=== PATIENT | female | born 1960 ===

== ENCOUNTER 2016-08-31 12:27 | Emergency (ER) | payer OTHER ==
[~2016-08-31 12:27] MED LIST: ATROPINE 0.5 MG/5 ML DISP.SYRIN. ONE; EPINEPHRINE 1 MG/10 ML DISP.SYRIN. ONE
[2016-08-31] MEDS ORDERED: DOPAMINE 400MG/250ML PREMIX 0 ML IV ONE (12:58)
[2016-08-31] MEDS ORDERED: PHENYLEPHRINE 10 MG/ML VIAL. ONE (12:59)
[2016-08-31] MEDS ORDERED: PHENYLEPHRINE in 0.9% NACL PF 1 MG/10 ML DISP.SYRIN. IV ONE (13:00)
[2016-08-31 13:01] VITALS: BP 60/39
[2016-08-31] MEDS ORDERED: LIDOCAINE 2% 20 ML VIAL. ONE (13:04)
[2016-08-31] MEDS ORDERED: IODIXANOL 320 MG/ML 100 ML VIAL. ONE (13:04)
[2016-08-31] MEDS ORDERED: IV NORMAL SALINE 1000ML BAG 1,000 ML IV ONE (13:15)
[2016-08-31] MEDS ORDERED: IV NORMAL SALINE 1000ML BAG 1,000 ML IV SCH (13:20)
[2016-08-31 13:23] LABS: POTASSIUM ISTAT 3.3 mmol/L (3.5-5.0)
[2016-08-31] MEDS ORDERED: DEXTROSE 50% 25 GM / 50ML DISP.SYRIN. IV PRN (13:30)
[2016-08-31] MEDS ORDERED: FENTANYL STANDARD PCA 30 ML IV PRN (13:30)
[2016-08-31] MEDS ORDERED: LORAZEPAM 2 MG/ML VIAL IV PRN (13:30)
[2016-08-31] MEDS ORDERED: ATROPINE 0.5 MG/5 ML DISP.SYRIN. ONE (13:30)
[2016-08-31] MEDS ORDERED: FENTANYL PF 100 MCG/2 ML VIAL. IV PRN (13:30)
[2016-08-31] MEDS ORDERED: MEPERIDINE PF 25 MG/ML VIAL. IV PRN (13:30)
[2016-08-31] MEDS ORDERED: MINERAL OIL/PETROLATUM,WHITE OPHTH OINT 3.5GM TUBE. OU PRN (13:30)
[2016-08-31] MEDS ORDERED: PROPOFOL 100 ML IV PRN (13:30)
[2016-08-31] MEDS ORDERED: VECURONIUM BOLUS 10 MG VIAL. IV PRN (13:30)
[2016-08-31] MEDS ORDERED: 0.9 % SODIUM CHLORIDE 10 ML DISP.SYRIN. IV PRN (13:30)
--- NOTE | 2016-08-31 14:28 | CARD ---
APPROVED REPORT Procedure(s) performed: Limited coronary angiography HISTORY The patient is a 55 year-old female with a history of : Patient is a 55 y.o woman who presented to [facility] ER after reported syncopal event. Prior to EMS arrival, she was down for 15 to 20 min and upon thei r arrival was in PEA. She received 15min of CPR before return of pulse. Upon arrival to the ER, she w as not moving her extremities, pupils were fixed and dilated. EKG reviewed and showed massive infero- posterior STEMI. The patient was then emergently transferred to the porcelain enamel laborer after discussion with [facility] family that this may be a salvage case given her down time and lack of spontaneous movements/respir ations. Upon arrival to the porcelain enamel laborer, she was hypotensive on multiple pressors. Access was obtained i n the right artery and vein and a JL4 catheter was advanced to the LM and one image was performed at which point the patient continued to deteriorate and her BP dropped below 30 systolic. At this time, CPR was reinitiated. Despite aggressive CPR for 20 min, there was no ROSC. Time of 1:40 pm. , O f note, patient had a delayed presentation, upon talking to the patient's family, it appears that she had sports physiotherapist nausea, vomiting and diaphoresis but did not go to doctor. She apparently took sherry e OTC meds and tried to lie down but this did not help and eventually had a witnessed syncopal event. , . INDICATION The indication(s) include : STEMI . CASE TECHNIQUE The patient was brought emergently into the cardiac catheterization lab. A timeout was performed conf irming the patient's name, date of , procedure, and site of procedure. All necessary parties wer e wearing the appropriate personal protective equipment and radiation monitoring devices. After expla ining the risks and benefits of the procedure, informed consent was obtained. The right femoral groin was infiltrated with 2% Lidocaine subcutaneous anesthesia. During this case, Fluoroscopy and low osm olar contrast were used for imaging. Conclusion 1. Suspect likely secondary cardiovascular collapse in the setting of a delayed presentation of inferior-posterior STEMI. Recommendations Discussed with family ( and mother)
[2016-08-31] MEDS ORDERED: CALCIUM CHLORIDE 1,000 MG/10 ML DISP.SYRIN IV ONE (15:00)
[2016-08-31] MEDS ORDERED: EPINEPHRINE 30 MG/30 ML VIAL. ONE (15:00)
[2016-08-31] MEDS ORDERED: SODIUM BICARB ADULT 8.4% 50 MEQ/50 ML DISP.SYRIN. ONE (15:00)
[2016-08-31] MEDS ORDERED: EPINEPHRINE 1 MG/10 ML DISP.SYRIN. ONE (15:00)
[2016-08-31] MEDS ORDERED: INSULIN ASPART 300 UNITS/3 ML INSULN.PEN SQ SCH (17:00)
[2016-08-31] MEDS ORDERED: ACETAMINOPHEN 650 MG/20.3 ML SOLUTION. NG SCH (18:00)
--- NOTE | 2016-08-31 19:30 | PHYS DOC ---
Adult General Chief Complaint Chief Complaint: CPR/FULL ARREST HPI HPI 55-year-old female presents to the emergency department in cardiac arrest. Apparently, the patient collapsed at home and the called EMS. There was no CPR started in the 5-10 minutes for EMS to arrive. On EMS arrival the patient was in asystole ACLS protocol was started she was given multiple doses of epinephrine which then converted her to a fine V. fib which was shocked at least twice in route. An LMA was placed in route for airway protection. Patient is unable to provide any history secondary to critical nature of her illness [] Review of Systems Review of Systems Review of systems is unobtainable secondary to critical nature of the patient's illness Current Medications Current Medications Current Medications Medications (Trade) Dose Ordered Sig/Abi Start Time Stop Time Status Last Admin Dose Admin Acetaminophen (Tylenol) 650 mg PRN Q6HRS PRN 09/01/16 13:30 09/01/16 13:30 DC Atropine Sulfate 0.5 mg STK-MED ONCE 08/31/16 13:30 08/31/16 14:07 DC Dextrose 12.5 gm PRN Q15MIN PRN 08/31/16 13:30 08/31/16 14:07 DC Dopamine HCl/ Dextrose 0 ml @ As Directed STK-MED ONCE 08/31/16 12:58 08/31/16 14:07 DC Famotidine (Pepcid) 20 mg BID 08/31/16 21:00 08/31/16 21:00 DC Fentanyl Citrate 30 ml @ 2.5 mls/hr CONT PRN PRN 08/31/16 13:30 08/31/16 14:07 DC Fentanyl Citrate (Fentanyl 2ml Vial) 25 mcg PRN Q30MIN PRN 08/31/16 13:30 08/31/16 14:08 DC Heparin Sodium/ Sodium Chloride 1,000 ml @ As Directed STK-MED ONCE 08/31/16 13:04 08/31/16 14:07 DC Info 1 ea DAILY PRN 09/02/16 13:30 09/02/16 13:30 DC Insulin Aspart (Novolog) 0-7 UNITS TIDWMEALS 08/31/16 17:00 08/31/16 17:00 DC Iodixanol 100 ml 100 ml STK-MED ONCE 08/31/16 13:04 08/31/16 14:07 DC Lidocaine HCl 20 ml 20 ml STK-MED ONCE 08/31/16 13:04 08/31/16 14:07 DC Lorazepam 1 mg 1 mg PRN Q30MIN PRN 08/31/16 13:30 08/31/16 14:07 DC Meperidine HCl (Demerol) 12.5 mg PRN Q30MIN PRN 08/31/16 13:30 08/31/16 14:07 DC Multi-Ingred Cream/Lotion/Oil/ Oint (Artificial Tears Eye Oint) 1 [place] PRN Q6HRS PRN 08/31/16 13:30 08/31/16 14:07 DC Phenylephrine HCl 1 mg STK-MED ONCE 08/31/16 13:00 08/31/16 14:07 DC Phenylephrine HCl (Syed-Synephrine Inj) 10 mg STK-MED ONCE 08/31/16 12:59 08/31/16 14:07 DC Propofol (Diprivan) 100 ml @ 0 mls/hr CONT PRN 08/31/16 13:30 08/31/16 14:07 DC Sodium Chloride (Iv Sodium Chloride 0.9% 1000ml Bag) 1,000 ml @ 1,000 mls/hr Q1H 08/31/16 13:20 08/31/16 14:08 DC Sodium Chloride (Normal Saline Flush) 3 ml QSHIFT PRN 08/31/16 13:30 08/31/16 14:07 DC Vecuronium [place] (Norcuron Bolus) DOSE AT 0.1 mg/kg PRN Q30MIN PRN 08/31/16 13:30 08/31/16 14:07 DC Allergies Allergies Allergies Coded Allergies Type Severity Reaction Last Updated Verified Unable to Assess 08/31/16 No Physical Exam Physical Exam Constitutional: The patient is unresponsive with an LMA in place with chest compressions going. [] HENT: Normocephalic, atraumatic, bilateral external ears normal, oropharynx moist, no oral exudates, nose normal. [] Eyes: PERRLA, EOMI, conjunctiva normal, no discharge. [] Neck: Normal range of motion, no tenderness, supple, no stridor. [] Cardiovascular:Heart rate regular rhythm, no murmur [] Lungs & Thorax: Assisted breath sounds are clear [] Abdomen: Bowel sounds normal, soft, no tenderness, no masses, no pulsatile masses. [] Skin: Warm, dry, no erythema, no rash. [] Back: No tenderness, no CVA tenderness. [] Extremities: No tenderness, no cyanosis, no clubbing, ROM intact, no edema. [] Neurologic: Obtunded [] Psychologic: Unable to assess [] Current Patient Data Vital Signs Vital Signs Date Time Temp Pulse Resp B/P Pulse Ox O2 Delivery O2 Flow Rate FiO2 08/31/16 13:15 Ventilator 08/31/16 13:01 81 28 60/39 87 08/31/16 12:47 95.2 95.2 Lab Values Laboratory Tests Test 08/31/16 13:12 08/31/16 13:20 POC Troponin I 0.52ng/ml (<0.08) POC Hemoglobin 13.9g/dL (12-15) POC Hematocrit 41% (36-40) H POC Sodium 139mmol/L (135-145) POC Potassium 3.3mmol/L (3.5-5.0) L POC Chloride 106mmol/L (98-110) POC Total CO2 16mmol/L (23-32) L Anion Gap 21mmol/L (6-14) H POC Blood Urea Nitrogen 11mg/dL (8-26) POC Creatinine 0.5mg/dL (0.5-1.4) Glucose Level 583mg/dL (70-99) H POC Ionized Calcium (Sharyn) 0.92mmol/L (1.13-1.32) L Laboratory Tests 08/31/16 13:20 EKG EKG [EKG shows a large ST elevation ND inferiorly] Radiology/Procedures Radiology/Procedures [] Course & Med Decision Making Course & Med Decision Making Pertinent Labs and Imaging studies reviewed. (See chart for details) [ED course: Evaluation reveals a critically ill female. Please see the CODE BLUE sheet for exact times of medications given. Dr. SHEPHERD was in the room shortly after the patient's arrival and we decided to call a code STEMI. The patient was in the room for approximately 30 minutes being stabilized prior to leaving for the Credentialing Manager. Procedure: Intubation LMA was removed. Patient was intubated using a 3 Olinda blade and a 7.5 ET tube. With good color change on the O2 monitor at 22 cm at the lips] CRITICAL CARE time was 30 minutes - time exclusive of any procedures performed. Care included medical management, x-ray/lab interpretation, discussions with the patient and their family as well as appropriate medical consultants. Dragon Disclaimer Dragon Disclaimer This electronic medical record was generated, in whole or in part, using a voice recognition dictation system. Departure Departure Impression: Primary Impression: STEMI (ST elevation myocardial infarction) Disposition: ADMITTED INPATIENT Condition: CRITICAL Referrals: UNKNOWN PCP NAME (PCP) Problem Qualifiers Primary Impression: STEMI (ST elevation myocardial infarction) Involved coronary artery: unspecified coronary artery Qualified Code: I21.3 - ST elevation (STEMI) myocardial infarction of unspecified site COMFORT GASPAR DO Aug 31, 2016 19:30
[2016-08-31] MEDS ORDERED: FAMOTIDINE 20 MG/2 ML VIAL IVP SCH (21:00)
[2016-09-01] MEDS ORDERED: ACETAMINOPHEN 650 MG SUPP.RECT. PR PRN (13:30)
[2016-09-01] MEDS ORDERED: ACETAMINOPHEN 650 MG/20.3 ML SOLUTION. NG PRN (13:30)
--- NOTE | 2016-09-02 11:19 | EKG ---
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
[2016-09-02] MEDS ORDERED: ELECTROLYTE (ICU) PROTOCOL. MC PRN (13:30)
== END 2016-08-31 13:12 | disposition other institution (70) ==
LOC: ER 12:27
DX: I21.3 ST elevation (STEMI) myocardial infarction of unspecified site (principal)
CPT/HCPCS: 31500; 51702; 80047; 84484; 93005; 93454; 94002; 99291; C1769; C1887; C1892; J0171; J0461; J3490